=== PATIENT | male | born 2000 | race Caucasian/White ===

== ENCOUNTER 2021-10-20 15:52 | Emergency (ER) | payer OTHER ==
[~2021-10-20] VITALS: Ht 180.3 cm; Wt 68.8 kg
[2021-10-20] MEDS ORDERED: ONDANSETRON 4MG ORAL DISINTEGRATING TAB PO ONE (18:10)
[2021-10-20] MEDS ORDERED: KETOROLAC 30 MG/ML 1ML VIAL IM ONE (20:00)
[2021-10-20 20:50] VITALS: BP 130/85
== END 2021-10-20 20:53 | disposition home or self-care (01) ==
LOC: M ED 15:52
DX: R51.9 Headache, unspecified (principal); M54.50 Low back pain, unspecified; Y30.XXXA Falling, jumping or pushed from a high place, undetermined intent, initial encounter; Y92.9 Unspecified place or not applicable; Y93.9 Activity, unspecified; Y99.0 Civilian activity done for income or pay; F17.200 Nicotine dependence, unspecified, uncomplicated
CPT/HCPCS: 70450; 72125; 72128; 72131; 96372; 99283; J1885